=== PATIENT | male | born 1945 | race African-American/Black ===

== ENCOUNTER 2017-01-28 15:19 | Emergency (ER) | payer OTHER, MEDICAID ==
[2017-01-28 15:23] VITALS: BP 187/94; BMI 22.9
--- NOTE | 2017-01-28 16:02 | DR.GENAD ---
HPI - PCP Primary Care Physician: alexander - Complaint/Symptoms Chief Complaint Doctors Comments: Patient admits to right side pain for several weeks. Denies trauma. Severity moderate 7/10, quality sharp, severity moderate , duration one week, modifyiing factors movement. Chief Complaint:: right side flank pain - Source History Provided: Patient - Mode of Arrival Mode of Arrival: Ambulatory - Timing Onset of Chief Complaint: 01/21/17 PMH - PMH Past Medical History: Yes Past Medical History: Arthritis, Hypertension Past Surgical History: No Surgical History: No History - Family History History of Family Medical Conditions: Yes Family Medical History: Diabetes Mellitus, Hypertension - Social History Does patient currently use any type of tobacco product: Yes Have you used tobacco products in the last 12 months: Yes Type of Tobacco Use: Cigarettes Does any household member use tobacco: Yes Alcohol Use: Rarely Do you use any recreational Drugs:: No Lives With: Family Lives Where: Home - infectious screening In the last 2 months have you had wt loss of >10#?: NO Have you had fever, night sweats or hemotysis?: No Have you traveled outside the country in the last 6 months?: No ROS - Review of Systems Constitutional: No Symptoms Reported Eyes: No Symptoms Reported ENTM: No Symptoms Reported Respiratoy: No Symptoms Reported Cardiovascular: No Symptoms Reported Gastrointestinal/Abdominal: No Symptoms Reported Genitourinary: No Symptoms Reported Neurological: No Symptoms Reported Musculoskeletal: No Symptoms Reported Integumentary: No Symptoms Reported Hematologic/Lymphatic: No Symptoms Reported Endocrine: No Symptoms Reported Psychiatric: No Symptoms Reported All Other Systems: Reviewed and Negative PE - Vital Signs Vitals: Temperature 98.9 F Pulse Rate 97 Respiratory Rate 20 Blood Pressure [Right Arm] 163/106 Blood Pressure [Left Arm] 163/94 Blood Pressure 187/94 O2 Sat by Pulse Oximetry 99 - General Limitations: No Limitations General Appearance: Alert, In No Apparent Distress - Head Head Exam: Normal Inspection, Atraumatic - Eyes Eye exam: Normal Appearance, PERRL, EOMI - ENT ENT Exam: Normal Exam External Ear Exam: Normal External Inspection TM/Canal Exam: Bilateral Normal Nose Exam: Normal Nose Exam Mouth Exam: Normal Inspection Throat Exam: Normal Inspection - Neck Neck Exam: Normal Inspection - Chest Chest Inspection: Normal Inspection, Tenderness (admits to tenderness to palpation) - Respiratory Respiratory Exam: Normal Lung Sounds Bilat Respiratory Exam: Bilateral Clear to Auscultation - Cardiovascular Cardiovascular Exam: Regular Rate, Normal Rhythm - Abdominal Exam Abdominal Exam: Normal Inspection Abdominal Tenderness: negative: RUQ, RLQ, LUQ, LLQ, Epigastrium, Suprapubic, Diffuse, Mild, Moderate, Severe, Other - Extremities Extremities Exam: Normal Inspection - Back Back Exam: Normal Inspection - Neurologic Neurological Exam: Alert, Oriented X3, CN II-XII Intact - Psychiatric Psychiatric Exam: Normal Affect - Skin Skin Exam: Warm, Dry, Intact Course - Reevaluation 1st: Improved ROR - XRAY XRAY Interpreted by: Radiologist (Chest negative) - Diagnosis Discharge Problem: Flank pain, chronic - Discharge Plan Condition: Stable - Follow ups/Referrals Follow ups/Referrals: CÉSAR ALEXANDER [Primary Care Provider] - 3 days - Instructions
--- NOTE | 2017-01-28 16:07 | RAD ---
HISTORY: Right flank pain Study: Single view chest Comparison: 06/09/2015 Findings: The lungs are clear without consolidation, effusion or pneumothorax. The cardiac and mediastinal co ntours are within normal limits. The soft tissues are unremarkable. IMPRESSION: 1. Negative portable chest radiograph. Reported By:
[2017-01-28] MEDS ORDERED: TORADOL 60 MG VIAL IM ONE (16:10)
[2017-01-28] MEDS ORDERED: TORADOL 60 MG VIAL ONE (16:20)
== END 2017-01-28 17:02 | disposition home or self-care (01) ==
LOC: ER 15:19
DX: R10.84 Generalized abdominal pain (principal)
CPT/HCPCS: 71010; 96372; 99282; J1885

== ENCOUNTER 2017-11-10 06:54 | Emergency (ER) | payer OTHER, MEDICAID ==
--- NOTE | 2017-11-10 07:19 | DR.GENAD ---
HPI - PCP Primary Care Physician: BENJAMIN Burdick HPI Comment HPI Comment: PERSISTENT AND GETTING WORSE. NO FEVER. - Complaint/Symptoms Chief Complaint Doctors Comments: RIGHT FLANK PAIN AND HEMATURIA SINCE THURSDAY. Chief Complaint:: PT C/O LOWER BACK PAIN. PT STATES HE HURT HIS BACK THURSDAY WHEN HE WAS WORKING. PT ALSO STATES HE IS HAVING SOME HEMATURIA. - Nurses notes reviewed Nurses Notes Review: Yes - Source History Provided: Patient - Mode of Arrival Mode of Arrival: Ambulatory - Timing Onset of Chief Complaint: 11/08/17 Came on: Suddenly - Duration Duration: Constant Duration: Days - Severity Severity: Moderate PMH - PMH Past Medical History: Yes Past Medical History: Arthritis, Hypertension Past Surgical History: No Surgical History: No History - Family History History of Family Medical Conditions: Yes Family Medical History: Diabetes Mellitus, Hypertension - Social History Does patient currently use any type of tobacco product: Yes Have you used tobacco products in the last 12 months: Yes Type of Tobacco Use: Cigarettes Does any household member use tobacco: Yes Alcohol Use: None Do you use any recreational Drugs:: No Lives With: Family Lives Where: Home - infectious screening In the last 2 months have you had wt loss of >10#?: NO Have you had fever, night sweats or hemotysis?: No Have you traveled outside the country in the last 6 months?: No Isolation: Standard ROS - Review of Systems Constitutional: No Symptoms Reported Eyes: No Symptoms Reported ENTM: No Symptoms Reported Respiratoy: No Symptoms Reported Cardiovascular: No Symptoms Reported Gastrointestinal/Abdominal: No Symptoms Reported Genitourinary: Hematuria Neurological: No Symptoms Reported Musculoskeletal: Other (RIGHT FLANK PAIN) Integumentary: No Symptoms Reported Hematologic/Lymphatic: No Symptoms Reported Endocrine: No Symptoms Reported All Other Systems: Reviewed and Negative PE - General Limitations: No Limitations General Appearance: Alert - Head Head Exam: Normal Inspection - Eyes Eye exam: Normal Appearance - ENT ENT Exam: Normal External Ear Exam External Ear Exam: Normal External Inspection TM/Canal Exam: Bilateral Normal Nose Exam: Normal Nose Exam Mouth Exam: Normal Inspection Throat Exam: Normal Inspection - Neck Neck Exam: Trachea Midline - Chest Chest Inspection: Symmetric Chest Wall Rise - Respiratory Respiratory Exam: Normal Lung Sounds Bilat Respiratory Exam: Bilateral Clear to Auscultation - Cardiovascular Cardiovascular Exam: Regular Rate, Normal Rhythm, Normal Heart Sounds - Extremities Extremities Exam: Normal Inspection - Back Back Exam: (R) CVA Tenderness, Paraspinal Tenderness - Neurologic Neurological Exam: Alert, Oriented X3 - Psychiatric Psychiatric Exam: Normal Affect, Normal Mood - Skin Skin Exam: Normal Color - Vital Signs Vitals: Temperature 97.6 F Pulse Rate 88 Respiratory Rate 20 Blood Pressure [Right Arm] 163/106 Blood Pressure [Left Arm] 163/94 Blood Pressure 197/97 O2 Sat by Pulse Oximetry 97 MDM - Differential Diagnosis Differential Diagnosis: RIGHT FLANK PAIN, HEMATURIA Course - Treatment Treatment: SEE ORDERS. - Education/Counseling Education/Counseling: Patient, Education Educated On: Treatment, Diagnosis, Needs for Follow Up ROR - Labs Reviewed Laboratory Results Reviewed?: Yes - XRAY XRAY Interpreted by: Radiologist - Labs Reviewed Laboratory: Specimen Type Clean catch urine 11/10/17 09:08 Urine Color Yellow (YELLOW) 11/10/17 09:08 Urine Appearance Clear (CLEAR) 11/10/17 09:08 Urine pH 6.0 (5.0 - 8.0) 11/10/17 09:08 Ur Specific [place] 1.025 (1.000-1.030) 11/10/17 09:08 Urine Protein 2+ (NEGATIVE) 11/10/17 09:08 Urine Glucose (UA) Negative (NEGATIVE) 11/10/17 09:08 Urine Ketones Negative (NEGATIVE) 11/10/17 09:08 Urine Occult Blood 4+ (NEGATIVE) 11/10/17 09:08 Urine Nitrite Negative (NEGATIVE) 11/10/17 09:08 Urine Bilirubin Negative (NEGATIVE) 11/10/17 09:08 Urine Urobilinogen 2+ (NORMAL) 11/10/17 09:08 Ur Leukocyte Esterase 1+ (NEGATIVE) 11/10/17 09:08 Urine RBC 25-30 /HPF (NEGATIVE) 11/10/17 09:08 Urine WBC 4-8 /HPF (NEGATIVE) 11/10/17 09:08 Ur Squamous Epith Cells Few /HPF (NEGATIVE) 11/10/17 09:08 Urine Bacteria Trace /HPF (NEGATIVE) 11/10/17 09:08 Hyaline Casts Few /LPF (NEGATIVE) 11/10/17 09:08 Ur Culture Indicated? No/not indicated 11/10/17 09:08 - Diagnosis Discharge Problem: Hypertension Qualifiers: Hypertension type: essential hypertension Qualified Code(s): I10 - Essential ( primary) hypertension Cholelithiasis Qualifiers: Cholelithiasis location: gallbladder Cholecystitis presence: without cholecystitis Biliary obstruction: without biliary obstruction Qualified Code(s) : K80.20 - Calculus of gallbladder without cholecystitis without obstruction - Discharge Plan Disposition: 01 HOME, SELF-CARE Condition: Stable Prescriptions: Acetaminophen with Codeine [Tylenol/Codeine #3 300-30 mg] 1 tab PO Q4-6H PRN # 15 tab PRN Reason: Pain Clonidine HCl [CATAPRES 0.1 MG TAB *] 0.1 mg PO BID #60 tab Lisinopril & Hydrochlorothiazi [Zestoretic 20/25 mg] 1 tab PO DAILY #30 tab - Follow ups/Referrals Follow ups/Referrals: CÉSAR ALEXANDER [Primary Care Provider] - 2 days - Instructions Instructions: Smoking Cessation, Tips for Success, Ywuz-[id number], Cholelithiasis , Back Pain, Adult, [id number] Additional Instructions: return to ed if worse. you have a mass in you mucles that need to be evaluated. discuss it with pcp.
[2017-11-10 07:22] VITALS: BP 197/97; BMI 23.6
[2017-11-10] MEDS ORDERED: TORADOL 60 MG VIAL IM ONE (07:26)
[2017-11-10] MEDS ORDERED: NORFLEX INJ IM ONE (07:26)
[2017-11-10] MEDS ORDERED: TORADOL 60 MG VIAL ONE (07:41)
[2017-11-10] MEDS ORDERED: NORFLEX INJ ONE (07:41)
--- NOTE | 2017-11-10 08:59 | CT ---
HISTORY: Right flank pain since Thursday. Study: CT abdomen and pelvis without IV or oral contrast Comparison: No priors Technique: Multiple axial images of the abdomen and pelvis were obtained from the lung bases to the pubic symphy sis without IV or oral the administration of IV contrast. Coronal and sagittal images were also revi ewed. Dose reduction techniques utilized automatic exposure control. Findings: The visualized portions of the lung bases are unremarkable. The liver, spleen, pancreas, and adrenal glands are unremarkable in their CT appearance. There is a 2 mm calcified gallstone present laterall y. Simple cysts are present involving both kidneys. The largest cyst is present in the upper pole reg ion on the left and measures about 2 cm. No solid mass, kidney stone or hydronephrosis is seen.. No significant mesenteric lymphadenopathy or stranding can be observed. No free fluid or free air is se en within the abdomen. No bowel wall thickening or bowel dilatation is present. The appendix is norm al. The colon is unremarkable. Specifically, there is no diverticulosis noted within the sigmoid co armando. There is a 3 cm inguinal hernia present on the left containing peritoneal fat only and no bowel. There is a 5.5 cm mass present involving the vastus lateralis muscle on the right. This displays att enuation densities compatible with fat and may represent either a lipoma or a liposarcoma. The urinar y bladder is grossly unremarkable. The bony structures are grossly intact. IMPRESSION: 2 mm calcified gallstone. Simple cysts present involving both kidneys. No solid mass, stone or hydronephrosis is seen involving either kidney. 5.5 cm fatty mass present involving the vastus lateralis muscle on the right side. This may represent either a lipoma or a liposarcoma. Tissue diagnosis may be needed. Reported By:
[2017-11-10 09:22] LABS: BILIRUBIN,URINE NEGATIVE (NEGATIVE); BLOOD/HEMOGLOBIN,URINE 4+ (NEGATIVE); GLUCOSE, URINE NEGATIVE (NEGATIVE); KETONES,URINE NEGATIVE (NEGATIVE); LEUKOCYTE ESTERASE ,URINE 1+ (NEGATIVE); NITRITES,URINE NEGATIVE (NEGATIVE); PROTEIN,URINE 2+ (NEGATIVE); UROBILINOGEN,URINE 2+ (NORMAL)
[2017-11-10] MEDS ORDERED: CATAPRES TAB 0.1 MG PO ONE (09:30)
[2017-11-10] MEDS ORDERED: ZESTRIL TAB 20 MG PO ONE (09:31)
[2017-11-10] MEDS ORDERED: CATAPRES TAB 0.1 MG ONE (09:32)
[2017-11-10] MEDS ORDERED: ZESTRIL TAB 20 MG ONE (09:34)
[2017-11-10 09:39] LABS: APPEARANCE,URINE CLEAR (CLEAR); BACTERIA,URINE TRACE /HPF (NEGATIVE); COLOR,URINE YELLOW (YELLOW); HYALINE CASTS, URINE FEW /LPF (NEGATIVE); RBC,URINE 25-30 /HPF (NEGATIVE); SQUAMOUS EPITHELIAL CELL,UR FEW /HPF (NEGATIVE)
== END 2017-11-10 09:46 | disposition home or self-care (01) ==
LOC: ER 06:54
DX: K80.20 Calculus of gallbladder without cholecystitis without obstruction (principal); I10 Essential (primary) hypertension; N28.1 Cyst of kidney, acquired
CPT/HCPCS: 74176; 81001; 96372; 99282; 99283; J1885; J2360

== ENCOUNTER 2022-03-12 05:51 | Observation (INO) ==
[2022-03-12 06:01] VITALS: BMI 24.3
--- NOTE | 2022-03-12 06:22 | RAD ---
HISTORYRespiratory difficultySTUDYChest AP portableCOMPARISONNoneFINDINGSThe heart is enlarged. No congestive heart failure is noted. A wedge-shaped area of abnormal parenchymal density in the right upper hemithorax represents at least partial right upper lobe atelectasis. This obscures the right upper hilum. Further evaluation with chest CT WITH CONTRAST is recommended to exclude underlying neoplasm. Left hilum is normal. Remainder of the lung colvin are clear with the exception of minimal subsegmental atelectasis in left lung base. Bony thorax is unremarkable.IMPRESSIONWedge-shaped area of abnormal density in the right upper lung field most likely due to at least partial right upper lobe atelectasis which obscures the superior right hilum. Chest CT WITH CONTRAST is recommended for further evaluationRemainder of the lung colvin are free of infiltrates.Electronically signed by: MARY SANDOVAL (March 12, 2022 06:22:35)
[2022-03-12 06:25] LABS: ABG BASE EXCESS 1.1 mmol/L (-2.0-2.0); ABG HCO3 27.9 mmol/L (22-26)
[2022-03-12 06:26] LABS: ABG ALLEN TEST POS
[2022-03-12 06:31] LABS: ALANINE AMINOTRANSFERASE 32 Units/L (12-78); ALBUMIN 2.9 g/dL (3.4-5.0); ALKALINE PHOSPHATASE 100 Units/L (46-116); ASPARTATE AMINO TRANSFERASE 45 Units/L (15-37); BLOOD UREA NITROGEN 9 mg/dL (7-18); CALCIUM 7.7 mg/dL (8.5-10.1); CHLORIDE 98 mmol/L (98-107); COR CA(FOR HYPOALB) 8.6 mg/dL (8.5-10.1); CREATININE 1.06 mg/dL (0.70-1.30); SODIUM 132 mmol/L (136-145); TOTAL PROTEIN 8.1 g/dL (6.4-8.2); eGFR NON BLACK RACES > 60 (>60)
--- NOTE | 2022-03-12 06:33 | DR.SOBA ---
HPI Time Seen Time Seen by Provider: 03/12/22 06:29 Primary Care Physician Primary Care Physician: BENJAMIN HPI Comment HPI Comment: Brought in by ems with sob x several months as well as swelling in lower extremities; stopped taking his bp medications months ago; drinks "one beer every day"; no fever, chills, abd pain, n/v/d, cp or palpitations Complaints Chief Complaint:: PT IN ED VIA STRETCHER PER [facility] WITH C/O DIFFICULTY BREATHING OFF AND ON FOR A COUPLE OF WEEKS AND HIGH BLOOD PRESSURE. PER EMS PT STATED TO THEM THAT HE IS SUPPOSE TO BE ON BP MEDS BUT HASN'T BEEN TAKING IT. ALSO C/O BILATERAL LOWER EXTREMITY SWELLING. PT NOTED TO HAVE 2+ PITTING EDEMA FROM KNEES TO ANKLES BILATERALLY. COVID-19 Coronavirus risk:travel/contact w/high risk person: No Has patient experienced Coronavirus symptoms: Yes Coronavirus symptoms experienced: Shortness of Breath Source History Provided: Patient and EMS Mode of Arrival Mode of Arrival: Stretcher Timing Onset of Chief Complaint: 02/26/22 PMH PMH Past Medical History: Yes Past Medical History: Hypertension Past Surgical History: Yes Surgical History: No History Past Surgical History Comment: BILATERAL CATARACT Family History History of Family Medical Conditions: Yes Family Medical History: Diabetes Mellitus and Hypertension Social History Does patient currently use any type of tobacco product: No Have you used tobacco products in the last 12 months: No Type of Tobacco Use: None Does any household member use tobacco: No Alcohol Use: DAILY Do you use any recreational Drugs:: No Lives With: Significant Other Lives Where: Home Travel Risk Coronavirus risk:travel/contact w/high risk person: No Has patient experienced Coronavirus symptoms: Yes Coronavirus symptoms experienced: Shortness of Breath Infectious screening In the last 2 months have you had wt loss of >10#?: NO Have you had fever, night sweats or hemotysis?: No Have you traveled outside the country in the last 6 months?: No Isolation: Droplet ROS Review of Systems Constitutional: No Symptoms Reported Eyes: No Symptoms Reported ENTM: No Symptoms Reported Cardiovascular: No Symptoms Reported Gastrointestinal/Abdominal: No Symptoms Reported Genitourinary: No Symptoms Reported Neurological: No Symptoms Reported Musculoskeletal: No Symptoms Reported Integumentary: No Symptoms Reported Hematologic/Lymphatic: No Symptoms Reported Endocrine: No Symptoms Reported Psychiatric: No Symptoms Reported PE Vital Signs Vitals: Temperature 98.3 F Pulse Rate 76 Respiratory Rate 20 Blood Pressure [Right Arm] 170/84 Blood Pressure [Left Arm] 164/109 Blood Pressure 156/104 O2 Sat by Pulse Oximetry 100 General Limitations: No Limitations General Appearance: Alert and In No Apparent Distress Head Head Exam: Normal Inspection Eyes Eye exam: Normal Appearance ENT ENT Exam: Normal Exam Neck Neck Exam: Normal Inspection Chest Chest Inspection: Normal Inspection Respiratory Respiratory Exam: Bilateral: Wheezing, Left: Wheezing and Lower: Wheezing Cardiovascular Cardiovascular Exam: Regular Rate and Normal Rhythm Abdominal Exam Abdominal Exam: Normal Inspection, Normal Bowel Sounds and Soft Extremities Extremities Exam: Edema (2+ woody edema to knee) Back Back Exam: Normal Inspection Neurologic Neurological Exam: Alert and Oriented X3 Psychiatric Psychiatric Exam: Normal Affect and Normal Mood Skin Skin Exam: Warm, Dry, Intact and Normal Color ROR Labs Reviewed Result Diagrams: 03/13/22 05:00 03/13/22 05:00 Laboratory: WBC 7.2 X10^3/uL (3.6-10.0) 03/12/22 07:17 RBC 4.42 X10^6/uL (4.7-6.0) L 03/12/22 07:17 Hgb 7.1 g/dL (13.5-18.0) L 03/12/22 07:17 Hct 26.2 % (42.0-54.0) L 03/12/22 07:17 MCV 59.3 fL (80.0-100.0) L 03/12/22 07:17 MCH 16.0 pg (27.0-34.0) L 03/12/22 07:17 MCHC 27.0 g/dL (33.0-35.0) L 03/12/22 07:17 RDW 25.1 % (11.6-16.5) H 03/12/22 07:17 Plt Count 360 X10^3/uL (150.0-450.0) 03/12/22 07:17 Plt Count Comment Adequate (ADEQUATE) 03/12/22 07:17 MPV 8.7 fL (7.4-11.0) 03/12/22 07:17 Neut % (Auto) 54.0 % (42.0-75.0) 03/12/22 07:17 Lymph % (Auto) 19.5 % (21.0-51.0) L 03/12/22 07:17 [place] % (Auto) 23.3 % (0.0-13.0) H 03/12/22 07:17 Eos % (Auto) 1.8 % (0.9-2.9) 03/12/22 07:17 Baso % (Auto) 1.4 % (0.2-1.0) H 03/12/22 07:17 Neut # (Auto) 3.9 x10^3/uL (2.2-4.8) 03/12/22 07:17 Lymph # (Auto) 1.4 X10^3/uL (1.3-2.9) 03/12/22 07:17 [place] # (Auto) 1.7 x10^3/uL (0.3-0.8) H 03/12/22 07:17 Eos # (Auto) 0.1 x10^3/uL (0.0-0.2) 03/12/22 07:17 Baso # (Auto) 0.1 X10^3/uL (0.0-0.1) 03/12/22 07:17 Absolute Nucleated RBC 2.5 /100WBC 03/12/22 07:17 Total Counted 100 03/12/22 07:17 Neutrophils % (Manual) 44 % (39-76) 03/12/22 07:17 Lymphocytes % (Manual) 30 % (13-43) 03/12/22 07:17 Monocytes % (Manual) 16 % (4-9) H 03/12/22 07:17 Eosinophils % (Manual) 2 % (0-6) 03/12/22 07:17 Metamyelocytes % 8 03/12/22 07:17 Nucleated RBCs 4 03/12/22 07:17 Plt Morphology Comment Normal (NORMAL) 03/12/22 07:17 RBC Morphology Abnormal (NORMAL) 03/12/22 07:17 Hypochromasia 3+ A 03/12/22 07:17 Poikilocytosis Slight A 03/12/22 07:17 Anisocytosis 3+ A 03/12/22 07:17 Microcytosis 3+ A 03/12/22 07:17 Target Cells 1+ A 03/12/22 07:17 Tear Drop Cells Slight 03/12/22 07:17 Ovalocytes Slight A 03/12/22 07:17 Wister Cells Slight A 03/12/22 07:17 Crenated Cell 1+ A 03/12/22 07:17 Schistocytes Slight A 03/12/22 07:17 Sample Site Lbra 03/12/22 07:10 ABG pH 7.290 (7.35-7.45) L 03/12/22 07:10 ABG pCO2 59.0 mmHg (35.0-45.0) H* 03/12/22 07:10 ABG pO2 98.0 mmHg (80.0-100.0) 03/12/22 07:10 ABG HCO3 28.4 mmol/L (22-26) H 03/12/22 07:10 ABG O2 Saturation 97.0 % (90-100) 03/12/22 07:10 ABG Base Excess 0.7 mmol/L (-2.0-2.0) 03/12/22 07:10 Marquis Test N/a 03/12/22 07:10 A-a Gradient 28.0 mmHg 03/12/22 07:10 FiO2 28.0 03/12/22 07:10 Blood Gas Comments Pt olga well elj 03/12/22 07:10 Sodium 132 mmol/L (136-145) L 03/12/22 06:12 Corrected Sodium TNP 03/12/22 06:12 Potassium 4.2 mmol/L (3.5-5.1) 03/12/22 06:12 Chloride 98 mmol/L (98-107) 03/12/22 06:12 Carbon Dioxide 30.0 mmol/L (21-32) 03/12/22 06:12 BUN 9 mg/dL (7-18) 03/12/22 06:12 Creatinine 1.06 mg/dL (0.70-1.30) 03/12/22 06:12 Est GFR (MDRD) Af Amer > 60 (>60) 03/12/22 06:12 Est GFR (MDRD) Non-Af > 60 (>60) 03/12/22 06:12 Glucose 106 mg/dL (65-99) H 03/12/22 06:12 Calcium 7.7 mg/dL (8.5-10.1) L 03/12/22 06:12 Corrected Calcium 8.6 mg/dL (8.5-10.1) 03/12/22 06:12 Total Bilirubin 0.80 mg/dL (0.2-1.0) 03/12/22 06:12 AST 45 Units/L (15-37) H 03/12/22 06:12 ALT 32 Units/L (12-78) 03/12/22 06:12 Alkaline Phosphatase 100 Units/L (46-116) 03/12/22 06:12 Creatine Kinase 80 Units/L (39-308) 03/12/22 06:12 CK-MB (CK-2) 1.6 ng/mL (0-4.0) 03/12/22 06:12 CK/CKMB % Calc 2.0 % (<4) 03/12/22 06:12 Troponin I High Sens 29.5 ng/L (4.0-60.0) 03/12/22 06:12 B-Natriuretic Peptide 858 pg/mL (0-79) H* 03/12/22 06:12 Total Protein 8.1 g/dL (6.4-8.2) 03/12/22 06:12 Albumin 2.9 g/dL (3.4-5.0) L 03/12/22 06:12 Globulin 5.2 g/dL (2.5-4.5) H 03/12/22 06:12 Albumin/Globulin Ratio 0.6 Ratio (1.1-2.1) L 03/12/22 06:12 Specimen Type Clean catch urine 03/12/22 07:32 Urine Color Pale yellow (YELLOW) 03/12/22 07:32 Urine Appearance Clear (CLEAR) 03/12/22 07:32 Urine pH 6.0 (5.0 - 8.0) 03/12/22 07:32 Ur Specific [place] 1.010 (1.000-1.030) 03/12/22 07:32 Urine Protein Negative (NEGATIVE) 03/12/22 07:32 Urine Glucose (UA) Negative (NEGATIVE) 03/12/22 07:32 Urine Ketones Negative (NEGATIVE) 03/12/22 07:32 Urine Blood Negative (NEGATIVE) 03/12/22 07:32 Urine Nitrite Negative (NEGATIVE) 03/12/22 07:32 Urine Bilirubin Negative (NEGATIVE) 03/12/22 07:32 Urine Urobilinogen Normal (NORMAL) 03/12/22 07:32 Ur Leukocyte Esterase 1+ (NEGATIVE) 03/12/22 07:32 Urine RBC None seen /HPF (0-3) 03/12/22 07:32 Urine WBC 0-2 /HPF (0-5) 03/12/22 07:32 Ur Squamous Epith Cells Few /HPF (NEGATIVE) 03/12/22 07:32 Urine Bacteria Negative /HPF (NEGATIVE) 03/12/22 07:32 Ur Culture Indicated? No/not indicated 03/12/22 07:32 SARS-CoV-2 (PCR) Negative (NEGATIVE) 03/12/22 08:06 Influenza Type A (PCR) Negative (NEGATIVE) 03/12/22 08:06 Influenza Type B (PCR) Negative (NEGATIVE) 03/12/22 08:06 RSV (PCR) Negative (NEGATIVE) 03/12/22 08:06 XRAY XRAY Interpreted by: Radiologist X-ray Results: pcxr: Wedge-shaped area of abnormal density in the right upper lung field most likely due to at least partial right upper lobe atelectasis which obscures the superior right hilum. Chest CT WITH CONTRAST is recommended for further evaluation. Remainder of the lung colvin are free of infiltrates. Opioid Opioid Risk Tool Age (Herson box if 16-45): No History of Preadolescent Sexual Abuse: No Total: 0 Total Score Risk Category: Low Risk Copyright: Vides LR predicting aberrant behaviors Diagnosis Discharge Problem: Acute hypercapnic respiratory failure, Hypoxia, Uncontrolled hypertension Heart failure, chronic, with acute decompensation Qualifiers: Heart failure type: unspecified Qualified Code(s): I50.9 - Heart failure, unspecified Instructions Instructions: Fall Prevention in the Home, Adult, [id number] Lung Mass Hypoxia Heart Failure, Self Care, [id number] Hypertension, Adult, [id number] Acute Respiratory Failure, Adult Living With Heart Failure Forms: Precautions for COVID19 [facility] Patient Portal Social Distancing
[2022-03-12] MEDS ORDERED: LASIX IVP ONE ×2 (06:44→06:49)
[2022-03-12 07:00] LABS: CREATINE KINASE MB 1.6 ng/mL (0-4.0)
[2022-03-12] MEDS ORDERED: APRESOLINE INJ 20 MG VIAL IVP ONE (07:12)
[2022-03-12 07:13] LABS: ABG BASE EXCESS 0.7 mmol/L (-2.0-2.0); ABG HCO3 28.4 mmol/L (22-26)
[2022-03-12 07:37] LABS: BASOPHILS # (AUTO) 0.1 X10^3/uL (0.0-0.1); BASOPHILS % (AUTO) 1.4 % (0.2-1.0); EOSINOPHILS # (AUTO) 0.1 x10^3/uL (0.0-0.2); EOSINOPHILS % (AUTO) 1.8 % (0.9-2.9); HEMATOCRIT 26.2 % (42.0-54.0); HEMOGLOBIN 7.1 g/dL (13.5-18.0); LYMPHOCYTES # (AUTO) 1.4 X10^3/uL (1.3-2.9); LYMPHOCYTES % (AUTO) 19.5 % (21.0-51.0); MEAN CORPUSCULAR VOLUME 59.3 fL (80.0-100.0); MEAN PLATELET VOLUME 8.7 fL (7.4-11.0); MONOCYTES # (AUTO) 1.7 x10^3/uL (0.3-0.8); MONOCYTES % (AUTO) 23.3 % (0.0-13.0); NEUTROPHILS # (AUTO) 3.9 x10^3/uL (2.2-4.8); RED BLOOD COUNT 4.42 X10^6/uL (4.7-6.0); RED CELL DISTRIBUTION WIDTH 25.1 % (11.6-16.5); WHITE BLOOD COUNT 7.2 X10^3/uL (3.6-10.0)
[2022-03-12 07:40] LABS: BILIRUBIN,URINE NEGATIVE (NEGATIVE); BLOOD/HEMOGLOBIN,URINE NEGATIVE (NEGATIVE); GLUCOSE, URINE NEGATIVE (NEGATIVE); KETONES,URINE NEGATIVE (NEGATIVE); LEUKOCYTE ESTERASE ,URINE 1+ (NEGATIVE); NITRITES,URINE NEGATIVE (NEGATIVE); PROTEIN,URINE NEGATIVE (NEGATIVE); UROBILINOGEN,URINE NORMAL (NORMAL)
[2022-03-12 07:52] LABS: HYPOCHROMASIA 3+; METAMYELOCYTES % 8; PLATELET MORPHOLOGY COMMENT NORMAL (NORMAL)
[2022-03-12 07:52] LABS: APPEARANCE,URINE CLEAR (CLEAR); COLOR,URINE PALE YELLOW (YELLOW)
[2022-03-12 07:53] LABS: ANISOCYTOSIS 3+; BURR CELLS SLIGHT; CRENATED RBC 1+; MICROCYTOSIS 3+; OVALOCYTES SLIGHT; POIKILOCYTOSIS SLIGHT; SCHISTOCYTES SLIGHT; TARGET CELLS 1+; TEAR DROP CELLS SLIGHT
[2022-03-12 07:53] LABS: BACTERIA,URINE NEGATIVE /HPF (NEGATIVE); RBC,URINE NONE SEEN /HPF (0-3); SQUAMOUS EPITHELIAL CELL,UR FEW /HPF (NEGATIVE)
[2022-03-12] MEDS ORDERED: TYLENOL 325 MG TAB PO PRN (08:52)
[2022-03-12] MEDS ORDERED: PREDNISONE TAB 10 MG PO SCH ×2 (10:00→17:00)
[2022-03-12] MEDS ORDERED: COREG TAB 12.5 MG PO SCH (10:00)
[2022-03-12] MEDS ORDERED: ZESTRIL TAB 20 MG ONE ×2 (10:02→20:36)
[2022-03-12] MEDS: ZESTRIL TAB 20 MG PO SCH ×2 (10:04→23:00)
[2022-03-12] MEDS: K-DUR TAB 20 MEQ PO SCH ×2 (10:04→23:00)
[2022-03-12] MEDS: LASIX IVP SCH ×2 (10:04→16:51)
[2022-03-12] MEDS: NS 1,000 ML IV 1,000 ML IV SCH ×2 (10:04→22:55)
[2022-03-12] MEDS ORDERED: NS 250 ML IV 250 ML IV PRN (13:03)
[2022-03-12] MEDS ORDERED: NS 250 ML IV 250 ML IV ONE (13:19)
[2022-03-12 13:54] LABS: ABG BASE EXCESS 2.9 mmol/L (-2.0-2.0)
[2022-03-12 13:56] LABS: ABG HCO3 30.4 mmol/L (22-26)
[2022-03-12 13:57] LABS: ABG ALLEN TEST POSITIVE
[2022-03-12] MEDS ORDERED: PREDNISONE TAB 10 MG PO NR ×2 (17:00→23:00)
[2022-03-12] MEDS ORDERED: BENADRYL CAP 50 MG PO SCH (22:45)
[2022-03-12 23:19] LABS: HEMATOCRIT 31.9 % (42.0-54.0)
[2022-03-12 23:24] LABS: HEMOGLOBIN 9.1 g/dL (13.5-18.0)
[2022-03-13] MEDS ORDERED: PREDNISONE TAB 10 MG PO NR (05:00)
[2022-03-13] MEDS ORDERED: BENADRYL CAP 50 MG PO SCH (05:00)
[2022-03-13 05:27] LABS: HEMOGLOBIN 9.3 g/dL (13.5-18.0); LYMPHOCYTES # (AUTO) 0.4 X10^3/uL (1.3-2.9); MEAN CORPUSCULAR HGB CONC 28.4 g/dL (33.0-35.0); MONOCYTES # (AUTO) 0.1 x10^3/uL (0.3-0.8); WHITE BLOOD COUNT 5.3 X10^3/uL (3.6-10.0)
[2022-03-13 05:35] LABS: BASOPHILS # (AUTO) 0.1 X10^3/uL (0.0-0.1); BASOPHILS % (AUTO) 1.1 % (0.2-1.0); EOSINOPHILS % (AUTO) 0.1 % (0.9-2.9); HEMATOCRIT 32.6 % (42.0-54.0); LYMPHOCYTES % (AUTO) 7.9 % (21.0-51.0); MEAN CORPUSCULAR HEMOGLOBIN 18.1 pg (27.0-34.0); MEAN CORPUSCULAR VOLUME 63.9 fL (80.0-100.0); MONOCYTES % (AUTO) 1.2 % (0.0-13.0); NEUTROPHILS # (AUTO) 4.8 x10^3/uL (2.2-4.8); NEUTROPHILS % (AUTO) 89.7 % (42.0-75.0)
[2022-03-13 05:50] LABS: ALANINE AMINOTRANSFERASE 35 Units/L (12-78); ALKALINE PHOSPHATASE 96 Units/L (46-116); ASPARTATE AMINO TRANSFERASE 40 Units/L (15-37); BLOOD UREA NITROGEN 13 mg/dL (7-18); CALCIUM 7.7 mg/dL (8.5-10.1); CHLORIDE 98 mmol/L (98-107); COR CA(FOR HYPOALB) 8.5 mg/dL (8.5-10.1); COR NA(FOR HYPERGLY) 135 mmol/L (136-145); CREATININE 1.15 mg/dL (0.70-1.30); SODIUM 134 mmol/L (136-145); TOTAL PROTEIN 8.2 g/dL (6.4-8.2); eGFR NON BLACK RACES > 60 (>60)
[2022-03-13 07:18] LABS: HYPOCHROMASIA 3+
[2022-03-13 07:20] LABS: ANISOCYTOSIS 3+; BURR CELLS SLIGHT; MICROCYTOSIS 2+; OVALOCYTES SLIGHT; POIKILOCYTOSIS SLIGHT; STOMATOCYTES SLIGHT
[2022-03-13 07:21] LABS: SCHISTOCYTES SLIGHT
[2022-03-13 07:30] LABS: PLATELET MORPHOLOGY COMMENT NORMAL (NORMAL)
[2022-03-13 08:18] VITALS: BP 162/85
[2022-03-13] MEDS ORDERED: ZESTRIL TAB 20 MG ONE (08:24)
[2022-03-13] MEDS: K-DUR TAB 20 MEQ PO SCH (08:51)
[2022-03-13] MEDS: LASIX IVP SCH (08:51)
[2022-03-13] MEDS: ZESTRIL TAB 20 MG PO SCH (08:51)
[2022-03-13] MEDS ORDERED: COREG TAB 3.125 MG PO SCH (10:00)
--- NOTE | 2022-03-13 10:32 | CT ---
HISTORYShortness of breath, abnormal chest x-ray, right upper lobe atelectasisSTUDYCT chest with contrastTechnique: Axial post-contrast images with coronal and sagittal reformats. Dose reduction procedures were used with mA/kv adjusted for body size.COMPARISONNoneFINDINGSExamination of the mediastinum demonstrated no evidence for mediastinal masses, enlarged mediastinal or enlarged left hilar adenopathy or significant aortic abnormality. The heart is enlarged. There is complete occlusion of the right mainstem bronchus approximately 2.3 cm distal to the linda and just distal to the origin of the bronchus intermedius. There appears to be a soft tissue mass occluding the bronchus at that point. That is best visualized on CT series 4 image 25. Distal to the bronchial obstruction there is complete atelectasis of the right upper lobe. There is a question of a right hilar mass contributing to some narrowing of the arterial branch to the right upper lobe. Endobronchial neoplasm is suspected and bronchoscopy would be of further diagnostic value. No pleural effusions are identified. No chest wall or axillary abnormality is identified. Those portions of the upper abdominal organs visualized were within normal limits with the exception of cholelithiasis without evidence for cholecystitis. Evaluation of the remainder of the lung colvin demonstrated right middle and right lower lobes to be hyperinflated but clear. Lung is free of acute infiltrates. There is a 3.3 mm nodule in the superior segment of the left lower lobe. This could be a granuloma or a metastasis.IMPRESSIONComplete occlusion of the right mainstem bronchus just distal to the origin of the bronchus intermedius. There appears to be an endobronchial mass present. Endobronchial neoplasm is suspected and bronchoscopy is recommended.Endobronchial occlusion results in right upper lobe atelectasis within which there may be a right hilar neoplasm..Cholelithiasis without evidence for cholecystitisElectronically signed by: MARY SANDOVAL (March 13, 2022 10:31:11)
[2022-03-13] MEDS: NS 1,000 ML IV 1,000 ML IV SCH (11:13)
[2022-03-14] MEDS ORDERED: ZESTRIL TAB 20 MG PO SCH (09:00)
[2022-03-14] MEDS ORDERED: LASIX PO SCH (09:00)
== END 2022-03-13 11:50 | disposition home or self-care (01) ==
LOC: MED/SURG 05:51 → ER 05:51 → MED/SURG 09:37
PROVIDERS: ADMIT Obstetrics & Gynecology Obstetrics; ATTEND Obstetrics & Gynecology Obstetrics
DX: Z20.822 Contact with and (suspected) exposure to COVID-19; J44.9 Chronic obstructive pulmonary disease, unspecified; J98.11 Atelectasis; I11.0 Hypertensive heart disease with heart failure; R06.02 Shortness of breath; R94.31 Abnormal electrocardiogram [ECG] [EKG]; I50.9 Heart failure, unspecified; D64.89 Other specified anemias

== ENCOUNTER 2022-04-10 04:07 | Observation (INO) ==
[2022-04-10 04:24] VITALS: BMI 21.9
[2022-04-10] MEDS ORDERED: DUONEB 0.5 MG/3 MG (3 mL) NEB ONE ×2 (04:24→05:49)
[2022-04-10] MEDS ORDERED: SOLU-Medrol 40 MG VIAL IVP ONE (04:24)
[2022-04-10] MEDS ORDERED: SOLU-Medrol 40 MG VIAL ONE (04:30)
[2022-04-10] MEDS ORDERED: CATAPRES TAB 0.2 MG PO ONE (04:37)
[2022-04-10] MEDS ORDERED: CATAPRES TAB 0.2 MG ONE (04:38)
--- NOTE | 2022-04-10 04:42 | DR.SOBA ---
HPI Time Seen Time Seen by Provider: 04/10/22 04:23 Primary Care Physician Primary Care Physician: BENJAMIN HPI Comment HPI Comment: A 77 y/o male presenting to the ED via EMS with c/o dyspnea. He states that he has been dyspneic for months. HE denies C/P. He states that he is out of medications. He was admitted for Obs. on 03/12/22 and released on . Complaints Chief Complaint:: PT IN ED VIA STRETCHER PER [facility] WITH C/O SOB AND ELEVATED BP. PT STATES HE IS OUT OF HIS MEDICATION. PT DISCHARGED FROM HOSPITAL ON 03/13/22. Self Treatment fo Chief Complaint: EMS GAVE 1 NITRO 0.4 SL COVID-19 Coronavirus risk:travel/contact w/high risk person: No Has patient experienced Coronavirus symptoms: Yes Coronavirus symptoms experienced: Shortness of Breath Reviewed Nurses Notes Reviewed: Yes Source History Provided: Patient and EMS Mode of Arrival Mode of Arrival: Stretcher Timing Onset of Chief Complaint: 04/10/22 Duration Duration: Months Context Onset:: With Light Exertion PE Risk Factors:: None History of:: CHF Modifying Factors Worsens:: Nothing Improves:: Nothing Associated Signs and Symptoms Associated Signs and Symptoms: None PMH PMH Past Medical History: Yes Past Medical History: Asthma, CHF, COPD and Hypertension Past Surgical History: Yes Surgical History: Other Past Surgical History Comment: BILATERAL CATARACT Family History History of Family Medical Conditions: Yes Family Medical History: Diabetes Mellitus, Cancer, Coronary Artery Disease and Hypertension Social History Does any household member use tobacco: No Alcohol Use: Occasionally Do you use any recreational Drugs:: No Lives With: Friend Lives Where: Home Travel Risk Coronavirus risk:travel/contact w/high risk person: No Has patient experienced Coronavirus symptoms: Yes Coronavirus symptoms experienced: Shortness of Breath Infectious screening In the last 2 months have you had wt loss of >10#?: NO Have you had fever, night sweats or hemotysis?: No Have you traveled outside the country in the last 6 months?: No Isolation: Droplet ROS Review of Systems Constitutional: No Symptoms Reported Eyes: No Symptoms Reported ENTM: No Symptoms Reported Respiratoy: Short of Breath Cardiovascular: No Symptoms Reported Gastrointestinal/Abdominal: No Symptoms Reported Genitourinary: No Symptoms Reported Neurological: No Symptoms Reported Musculoskeletal: No Symptoms Reported Integumentary: No Symptoms Reported Hematologic/Lymphatic: No Symptoms Reported Endocrine: No Symptoms Reported Psychiatric: No Symptoms Reported PE Vital Signs Vitals: Temperature 98.0 F Pulse Rate 109 Respiratory Rate 28 Blood Pressure [Right Arm] 162/85 Blood Pressure 191/112 O2 Sat by Pulse Oximetry 92 General Limitations: No Limitations General Appearance: Alert and In No Apparent Distress Head Head Exam: Normal Inspection, Atraumatic and Normocephalic Eyes Eye exam: Normal Appearance and EOMI ENT ENT Exam: Normal Exam, Normal Oropharynx, Normal External Ear Exam and Mucous Membranes Moist Neck Neck Exam: Normal Inspection, Full ROM and Trachea Midline Chest Chest Inspection: Normal Inspection and Symmetric Chest Wall Rise Respiratory Respiratory Exam: Bilateral: Wheezing Cardiovascular Cardiovascular Exam: Regular Rate, Normal Rhythm, Normal Heart Sounds, +S1 and +S2 Abdominal Exam Abdominal Exam: Normal Inspection, Normal Bowel Sounds and Soft Extremities Extremities Exam: Normal Inspection and Full ROM Back Back Exam: Normal Inspection and Full ROM Neurologic Neurological Exam: Alert and Oriented X3 Psychiatric Psychiatric Exam: Normal Affect and Normal Mood Skin Skin Exam: Intact COURSE Treatment Treatment: Pt's. presentation and findings were discussed with on-call physician (Dr. Fisher). Apparently, he was dx. with Rt. Lung mass at last admission (March 2022) and management was to be handled at office f/u. It's not clear if went for that appt. or not but he knows about this dx. In the ED here, he received Clonidine and IV Hydralazine for the BP elevation. Hypertension protocol was ordered as part of his admission orders. Reevaluation 1st: Improved Education/Counseling Education/Counseling: Patient, Education and Counseling Educated On: Treatment, Diagnosis, Prognosis and Needs for Follow Up ROR Labs Reviewed Result Diagrams: 04/10/22 04:47 Laboratory: WBC 10.6 X10^3/uL (3.6-10.0) H 04/10/22 04:47 RBC 5.35 X10^6/uL (4.7-6.0) 04/10/22 04:47 Hgb 10.1 g/dL (13.5-18.0) L 04/10/22 04:47 Hct 34.4 % (42.0-54.0) L 04/10/22 04:47 MCV 64.4 fL (80.0-100.0) L 04/10/22 04:47 MCH 18.9 pg (27.0-34.0) L 04/10/22 04:47 MCHC 29.4 g/dL (33.0-35.0) L 04/10/22 04:47 RDW 29.6 % (11.6-16.5) H 04/10/22 04:47 Plt Count 529 X10^3/uL (150.0-450.0) H 04/10/22 04:47 MPV 8.5 fL (7.4-11.0) 04/10/22 04:47 Neut % (Auto) 43.4 % (42.0-75.0) 04/10/22 04:47 Lymph % (Auto) 38.6 % (21.0-51.0) 04/10/22 04:47 [place] % (Auto) 15.4 % (0.0-13.0) H 04/10/22 04:47 Eos % (Auto) 1.5 % (0.9-2.9) 04/10/22 04:47 Baso % (Auto) 1.1 % (0.2-1.0) H 04/10/22 04:47 Neut # (Auto) 4.6 x10^3/uL (2.2-4.8) 04/10/22 04:47 Lymph # (Auto) 4.1 X10^3/uL (1.3-2.9) H 04/10/22 04:47 [place] # (Auto) 1.6 x10^3/uL (0.3-0.8) H 04/10/22 04:47 Eos # (Auto) 0.2 x10^3/uL (0.0-0.2) 04/10/22 04:47 Baso # (Auto) 0.1 X10^3/uL (0.0-0.1) 04/10/22 04:47 Absolute Nucleated RBC 0.3 /100WBC 04/10/22 04:47 SARS-CoV-2 (PCR) Negative (NEGATIVE) 04/10/22 04:21 Influenza Type A (PCR) Negative (NEGATIVE) 04/10/22 04:21 Influenza Type B (PCR) Negative (NEGATIVE) 04/10/22 04:21 RSV (PCR) Negative (NEGATIVE) 04/10/22 04:21 XRAY XRAY Interpreted by: Self X-ray Results: CXR: RUL atelectasis noted. There is no cardiomegaly. Radiology report is pending. Opioid Opioid Risk Tool Age (Herson box if 16-45): No History of Preadolescent Sexual Abuse: No Total: 0 Total Score Risk Category: Low Risk Copyright: [facility] predicting aberrant behaviors Diagnosis Discharge Problem: Acute dyspnea, Mass of right lung Hypertensive heart disease with CHF Qualifiers: Heart failure type: unspecified Qualified Code(s): I11.0 - Hypertensive heart disease with heart failure ADDITIONAL NOTES Additional Notes Additional Notes: Name: GRACE SPEARS PAcct#: [id number]: [id number] : 1945Sex: MLocation: ER Order Number(s): [id number](s):CHEST, 1 VIEW Ordering Physician: EZE ARRIAGA Primary Care: CÉSAR ALEXANDER Service Date: 04/10/22 Service Time: 424 PROCEDURE: Chest X-ray 1 View . HISTORY: Hypertension and dyspnea. TECHNIQUE: AP portable done at 4:28 a.m.. COMPARISON: 03/13/2022 CT chest and 03/12/2022 chest x-ray. TECHNICAL QUALITY: Satisfactory . FINDINGS: Normal size heart. Mild tortuosity descending aorta that is unchanged. Normal central vascularity. Atelectasis extending into the right upper lobe unchanged from previous studies. No other consolidation or pleural fluid. IMPRESSION: 1. Unchanged right upper lobe atelectasis. 2. No other significant abnormality identified. Electronically signed by: Willie Vieyra (Apr 10, 2022 04:44:45) Report Electronically signed: 04/10/22 0531 CC: Eze Arriaga
--- NOTE | 2022-04-10 04:46 | RAD ---
PROCEDURE: Chest X-ray 1 View .HISTORY: Hypertension and dyspnea.TECHNIQUE: AP portable done at 4:28 a.m..COMPARISON: 03/13/2022 CT chest and 03/12/2022 chest x-ray.TECHNICAL QUALITY: Satisfactory .FINDINGS:Normal size heart.Mild tortuosity descending aorta that is unchanged.Normal central vascularity.Atelectasis extending into the right upper lobe unchanged from previous studies. No other consolidation or pleural fluid.IMPRESSION:1. Unchanged right upper lobe atelectasis.2. No other significant abnormality identified.Electronically signed by: Willie Vieyra (Apr 10, 2022 04:44:45)
[2022-04-10 04:57] LABS: BASOPHILS # (AUTO) 0.1 X10^3/uL (0.0-0.1); BASOPHILS % (AUTO) 1.1 % (0.2-1.0); EOSINOPHILS # (AUTO) 0.2 x10^3/uL (0.0-0.2); EOSINOPHILS % (AUTO) 1.5 % (0.9-2.9); HEMATOCRIT 34.4 % (42.0-54.0); HEMOGLOBIN 10.1 g/dL (13.5-18.0); LYMPHOCYTES # (AUTO) 4.1 X10^3/uL (1.3-2.9); LYMPHOCYTES % (AUTO) 38.6 % (21.0-51.0); MEAN CORPUSCULAR HEMOGLOBIN 18.9 pg (27.0-34.0); MEAN CORPUSCULAR HGB CONC 29.4 g/dL (33.0-35.0); MEAN CORPUSCULAR VOLUME 64.4 fL (80.0-100.0); MEAN PLATELET VOLUME 8.5 fL (7.4-11.0); MONOCYTES # (AUTO) 1.6 x10^3/uL (0.3-0.8); MONOCYTES % (AUTO) 15.4 % (0.0-13.0); NEUTROPHILS # (AUTO) 4.6 x10^3/uL (2.2-4.8); NEUTROPHILS % (AUTO) 43.4 % (42.0-75.0); RED BLOOD COUNT 5.35 X10^6/uL (4.7-6.0); RED CELL DISTRIBUTION WIDTH 29.6 % (11.6-16.5); WHITE BLOOD COUNT 10.6 X10^3/uL (3.6-10.0)
[2022-04-10] MEDS ORDERED: MORPHINE SULFATE INJ 2 MG INJ IVP ONE (04:59)
[2022-04-10] MEDS ORDERED: MORPHINE SULFATE INJ 2 MG INJ ONE (05:01)
[2022-04-10] MEDS ORDERED: APRESOLINE INJ 20 MG VIAL IVP ONE ×2 (05:28→05:32)
[2022-04-10] MEDS ORDERED: APRESOLINE INJ 20 MG VIAL ONE (05:29)
[2022-04-10 05:31] LABS: ANISOCYTOSIS 3+; GIANT PLATELET FEW; HYPOCHROMASIA 3+; MICROCYTOSIS 2+; PLATELET MORPHOLOGY COMMENT ABNORMAL (NORMAL); POIKILOCYTOSIS 2+; SPHEROCYTES PRESENT; TARGET CELLS PRESENT
[2022-04-10 05:32] LABS: OVALOCYTES PRESENT; SCHISTOCYTES PRESENT
[2022-04-10] MEDS ORDERED: NORMODYNE INJ 20 MG VIAL IV PRN (05:32)
[2022-04-10] MEDS ORDERED: CATAPRES TAB 0.1 MG PO ONE (05:32)
[2022-04-10] MEDS: DUONEB 0.5 MG/3 MG (3 mL) NEB SCH ×2 (05:52→11:51)
[2022-04-10] MEDS ORDERED: NS 1,000 ML IV 1,000 ML IV SCH (06:00)
[2022-04-10 07:33] LABS: ALANINE AMINOTRANSFERASE 54 Units/L (12-78); ALKALINE PHOSPHATASE 93 Units/L (46-116); ASPARTATE AMINO TRANSFERASE 63 Units/L (15-37); BLOOD UREA NITROGEN 15 mg/dL (7-18); CALCIUM 8.4 mg/dL (8.5-10.1); CARBON DIOXIDE 29.9 mmol/L (21-32); CHLORIDE 105 mmol/L (98-107); COR CA(FOR HYPOALB) 9.2 mg/dL (8.5-10.1); CREATININE 1.01 mg/dL (0.70-1.30); SODIUM 138 mmol/L (136-145); TOTAL PROTEIN 8.2 g/dL (6.4-8.2); eGFR NON BLACK RACES > 60 (>60)
[2022-04-10] MEDS ORDERED: ZESTRIL TAB 40 MG PO SCH (09:00)
[2022-04-10] MEDS ORDERED: LASIX PO SCH (09:00)
[2022-04-10] MEDS ORDERED: COREG TAB 3.125 MG PO SCH (09:00)
[2022-04-10] MEDS ORDERED: PATIENT'S HOME MEDICATION (Fluticasone-Umeclidin-Vilanter [Trelegy Ellipta] 200-62.5-25 mc IN SCH (09:00)
[2022-04-10] MEDS ORDERED: NS 100 ML IV 100 ML with VENOFER 400 MG IV NR ×2 (09:39)
[2022-04-10] MEDS ORDERED: NORVASC TAB 5 MG PO SCH (10:00)
[2022-04-10 13:08] VITALS: BP 173/89
== END 2022-04-10 14:55 | disposition home health service (06) ==
LOC: ER 04:07 → MED/SURG 04:07
PROVIDERS: ADMIT Family Medicine; ATTEND Obstetrics & Gynecology Obstetrics

== ENCOUNTER 2022-10-23 08:24 | Inpatient (IN) ==
--- NOTE | 2022-10-23 08:39 | DR.SOBA ---
HPI Time Seen Time Seen by Provider: 10/23/22 08:38 Complaints Chief Complaint Doctors Comments: 77 y/o male presents with shortness of breath. Has a h/o lung neoplasm, has seen Dr Lyon, to start treatment in the near future. Feeling worse past few days. Does use oxygen at home, "not eough". Denies cough, fever, chills. No bowel or bladder issues. + dyspnea, worse with exertion. Has not been eating well. Reviewed Nurses Notes Reviewed: Yes Source History Provided: Patient PMH PMH Past Medical History: Asthma, CHF, COPD and Hypertension Past Surgical History: No Surgical History: Other Family History Family Medical History: Diabetes Mellitus, Cancer, Coronary Artery Disease and Hypertension Social History Do you use any recreational Drugs:: No ROS Review of Systems Constitutional: Weakness Eyes: No Symptoms Reported ENTM: No Symptoms Reported Respiratoy: Short of Breath Cardiovascular: No Symptoms Reported Gastrointestinal/Abdominal: No Symptoms Reported Genitourinary: No Symptoms Reported Neurological: No Symptoms Reported Musculoskeletal: No Symptoms Reported Integumentary: No Symptoms Reported Hematologic/Lymphatic: No Symptoms Reported All Other Systems: Reviewed and Negative PE Vital Signs Vitals: Temperature 98.4 F Pulse Rate 122 Respiratory Rate 48 Blood Pressure [Right Arm] 167/93 Blood Pressure [Left Arm] 164/109 Blood Pressure 79/54 O2 Sat by Pulse Oximetry 90 General General Appearance: Alert and In No Apparent Distress Eyes Eye exam: PERRL and EOMI ENT ENT Exam: Mucous Membranes Moist Neck Neck Exam: Normal Inspection and Full ROM Respiratory Respiratory Exam: Normal Lung Sounds Bilat; negative Accessory Muscle Use or R espiratory Distress Cardiovascular Cardiovascular Exam: Tachycardia and Irregular Rhythm Abdominal Exam Abdominal Exam: Normal Bowel Sounds and Soft; negative Tenderness Extremities Extremities Exam: Normal Inspection; negative Edema Neurologic Neurological Exam: Alert, Oriented X3 and CN II-XII Intact; negative Motor Sensory Deficit Skin Skin Exam: Warm and Dry COURSE Treatment Treatment: 77 y/o male, awaiting to start treatment for lug neoplasm, presents with increasing dyspnea, depsite home O2. Is having atrial fibrillation, with RVR. W/u initiated, ABG obtained on 4 L. PT given IV fluids, IV cardizem bolus for his RVR. 1013 - brief help with initial cardizem bolus. 2nd bolus of cardiazem, with cardizem drip started. Heart rate in the 120s. CXR - whitening out on the R side (slightly worse than recent). Labs show acute renal injury - BUN 127, Cr 6.12. ABG with acidosis, not CO2 retaining. Was given 1 amp bicarb IV. WBC elevated. Will obtain blood cultures, lactic acid, started IV Rocephin. Discussed with Dr Farley, will admit here. WBC markedly elevated, will cover with IV Rocephin. ROR Labs Reviewed Laboratory Results Reviewed?: Yes Result Diagrams: 10/23/22 09:10 10/23/22 09:10 Laboratory: WBC 31.9 X10^3/uL (3.6-10.0) H* 10/23/22 09:10 RBC 4.32 X10^6/uL (4.7-6.0) L 10/23/22 09:10 Hgb 10.1 g/dL (13.5-18.0) L 10/23/22 09:10 Hct 32.7 % (42.0-54.0) L 10/23/22 09:10 MCV 75.7 fL (80.0-100.0) L 10/23/22 09:10 MCH 23.3 pg (27.0-34.0) L 10/23/22 09:10 MCHC 30.8 g/dL (33.0-35.0) L 10/23/22 09:10 RDW 18.3 % (11.6-16.5) H 10/23/22 09:10 Plt Count 432 X10^3/uL (150.0-450.0) 10/23/22 09:10 Plt Count Comment Adequate (ADEQUATE) 10/23/22 09:10 MPV 9.5 fL (7.4-11.0) 10/23/22 09:10 Neut % (Auto) 83.2 % (42.0-75.0) H 10/23/22 09:10 Lymph % (Auto) 7.4 % (21.0-51.0) L 10/23/22 09:10 [place] % (Auto) 8.0 % (0.0-13.0) 10/23/22 09:10 Eos % (Auto) 0.8 % (0.9-2.9) L 10/23/22 09:10 Baso % (Auto) 0.6 % (0.2-1.0) 10/23/22 09:10 Neut # (Auto) 26.6 x10^3/uL (2.2-4.8) H 10/23/22 09:10 Lymph # (Auto) 2.3 X10^3/uL (1.3-2.9) 10/23/22 09:10 [place] # (Auto) 2.5 x10^3/uL (0.3-0.8) H 10/23/22 09:10 Eos # (Auto) 0.3 x10^3/uL (0.0-0.2) H 10/23/22 09:10 Baso # (Auto) 0.2 X10^3/uL (0.0-0.1) H 10/23/22 09:10 Absolute Nucleated RBC 0.1 /100WBC 10/23/22 09:10 Total Counted 100 10/23/22 09:10 Neutrophils % (Manual) 76 % (39-76) 10/23/22 09:10 Band Neutrophils % 13 % (0-10) H 10/23/22 09:10 Lymphocytes % (Manual) 2 % (13-43) L 10/23/22 09:10 Monocytes % (Manual) 8 % (4-9) 10/23/22 09:10 Metamyelocytes % 1 10/23/22 09:10 Plt Morphology Comment Normal (NORMAL) 10/23/22 09:10 RBC Morphology Abnormal (NORMAL) 10/23/22 09:10 Hypochromasia 1+ A 10/23/22 09:10 Anisocytosis Slight A 10/23/22 09:10 Microcytosis Slight A 10/23/22 09:10 [place] Cells 2+ A 10/23/22 09:10 Sample Site Rra 10/23/22 08:45 ABG pH 7.250 (7.35-7.45) L 10/23/22 08:45 ABG pCO2 38.0 mmHg (35.0-45.0) 10/23/22 08:45 ABG pO2 47.0 mmHg (80.0-100.0) L* 10/23/22 08:45 ABG HCO3 16.7 mmol/L (22-26) L* 10/23/22 08:45 ABG O2 Saturation 75.0 % (90-100) L* 10/23/22 08:45 ABG Base Excess -9.8 mmol/L (-2.0-2.0) L 10/23/22 08:45 [place]quis Test Pos 10/23/22 08:45 A-a Gradient 162.0 mmHg 10/23/22 08:45 FiO2 36.0 10/23/22 08:45 Blood Gas Comments Pt olga well eb 10/23/22 08:45 Sodium 141 mmol/L (136-145) 10/23/22 09:10 Corrected Sodium 143 mmol/L (136-145) 10/23/22 09:10 Potassium 4.6 mmol/L (3.5-5.1) 10/23/22 09:10 Chloride 106 mmol/L (98-107) 10/23/22 09:10 Carbon Dioxide 21.2 mmol/L (21-32) 10/23/22 09:10 BUN 127 mg/dL (7-18) H 10/23/22 09:10 Creatinine 6.12 mg/dL (0.70-1.30) H 10/23/22 09:10 Est GFR (MDRD) Af Amer 12 (>60) L 10/23/22 09:10 Est GFR (MDRD) Non-Af 10 (>60) L 10/23/22 09:10 Glucose 167 mg/dL (65-99) H 10/23/22 09:10 Calcium 8.5 mg/dL (8.5-10.1) 10/23/22 09:10 Corrected Calcium 10.5 mg/dL (8.5-10.1) H 10/23/22 09:10 Total Bilirubin 0.60 mg/dL (0.2-1.0) 10/23/22 09:10 AST 36 Units/L (15-37) 10/23/22 09:10 ALT 20 Units/L (12-78) 10/23/22 09:10 Alkaline Phosphatase 42 Units/L (46-116) L 10/23/22 09:10 Troponin I High Sens 30.8 ng/L (4.0-60.0) 10/23/22 09:10 B-Natriuretic Peptide 147 pg/mL (0-79) H 10/23/22 09:10 Total Protein 7.3 g/dL (6.4-8.2) 10/23/22 09:10 Albumin 1.5 g/dL (3.4-5.0) L 10/23/22 09:10 Globulin 5.8 g/dL (2.5-4.5) H 10/23/22 09:10 Albumin/Globulin Ratio 0.3 Ratio (1.1-2.1) L 10/23/22 09:10 (see discussion under COURSE) XRAY XRAY Interpreted by: Self X-ray Results: + R side whitening out, slightly worse than last time. EKG Rate: 127 [place]: Normal Rhythm: Afib (with RVR) ST: Nonsp Opioid Opioid Risk Tool Age (Herson box if 16-45): No History of Preadolescent Sexual Abuse: No Total: 0 Total Score Risk Category: Low Risk Copyright: [facility] predicting aberrant behaviors Discharge Plan Diagnosis Discharge Problem: New onset a-fib, Atrial fibrillation with RVR, Acute kidney injury due to trauma, Lung cancer Discharge Plan Patient Disposition: ADMITTED INPATIENT Condition: Stable
[2022-10-23] MEDS ORDERED: NS 500 ML IV 500 ML IV ONE ×4 (08:45→09:21)
[2022-10-23] MEDS ORDERED: CARDIZEM INJ 50 MG VIAL IVP ONE ×2 (08:45→09:19)
--- NOTE | 2022-10-23 08:45 | EKG ---
Test Reason : SHORT OF BREATH Blood Pressure : */* mmHG Vent. Rate : 127 BPM Atrial Rate : * BPM P-R Int : * ms QRS Dur : 94 ms QT Int : 324 ms P-R-T Axes : * 45 60 degrees QTc Int : 470 ms Atrial fibrillation with rapid ventricular response Minimal voltage criteria for LVH, may be normal variant ( Sokolow-Zhang ) Abnormal ECG When compared with ECG of 08-OCT-2022 02:34, Atrial fibrillation has replaced Sinus rhythm Confirmed by Remigio Razo ([id number]) on 10/23/2022 1:15:59 PM Referred By: Confirmed By: Remigio Razo
[2022-10-23 08:49] LABS: ABG BASE EXCESS -9.8 mmol/L (-2.0-2.0)
[2022-10-23 08:50] LABS: ABG ALLEN TEST POS; ABG HCO3 16.7 mmol/L (22-26)
[2022-10-23] MEDS ORDERED: CARDIZEM INJ 125 MG VIAL ONE ×2 (08:50→09:22)
[2022-10-23] MEDS ORDERED: DILTIAZEM 125mg/125mL-0.7%NACL 125 MG/125 ML PLAST..BAG IV PRN (09:20)
[2022-10-23] MEDS ORDERED: NS 100 ML IV 100 ML ONE ×3 (09:21→10:26)
[2022-10-23] MEDS ORDERED: SODIUM BICARBONATE 8.4% INJ ADULT ONE (09:28)
[2022-10-23] MEDS: SODIUM BICARBONATE 8.4% INJ ADULT IVP ONE ×2 (09:32→09:33)
[2022-10-23 09:40] LABS: ALBUMIN 1.5 g/dL (3.4-5.0); CALCIUM 8.5 mg/dL (8.5-10.1); CARBON DIOXIDE 21.2 mmol/L (21-32); COR CA(FOR HYPOALB) 10.5 mg/dL (8.5-10.1); CREATININE 6.12 mg/dL (0.70-1.30); TOTAL PROTEIN 7.3 g/dL (6.4-8.2)
[2022-10-23] MEDS ORDERED: NS 1,000 ML IV 1,000 ML ONE (09:55)
[2022-10-23] MEDS ORDERED: NS 1,000 ML IV 1,000 ML IV SCH (10:00)
[2022-10-23 10:04] LABS: BASOPHILS # (AUTO) 0.2 X10^3/uL (0.0-0.1); BASOPHILS % (AUTO) 0.6 % (0.2-1.0); EOSINOPHILS # (AUTO) 0.3 x10^3/uL (0.0-0.2); EOSINOPHILS % (AUTO) 0.8 % (0.9-2.9); HEMATOCRIT 32.7 % (42.0-54.0); HEMOGLOBIN 10.1 g/dL (13.5-18.0); LYMPHOCYTES # (AUTO) 2.3 X10^3/uL (1.3-2.9); LYMPHOCYTES % (AUTO) 7.4 % (21.0-51.0); MEAN CORPUSCULAR HEMOGLOBIN 23.3 pg (27.0-34.0); MEAN CORPUSCULAR HGB CONC 30.8 g/dL (33.0-35.0); MEAN CORPUSCULAR VOLUME 75.7 fL (80.0-100.0); MEAN PLATELET VOLUME 9.5 fL (7.4-11.0); MONOCYTES # (AUTO) 2.5 x10^3/uL (0.3-0.8); NEUTROPHILS # (AUTO) 26.6 x10^3/uL (2.2-4.8); NEUTROPHILS % (AUTO) 83.2 % (42.0-75.0); RED BLOOD COUNT 4.32 X10^6/uL (4.7-6.0); RED CELL DISTRIBUTION WIDTH 18.3 % (11.6-16.5)
[2022-10-23 10:08] LABS: BAND NEUTROPHILS % 13 % (0-10); METAMYELOCYTES % 1; PLATELET MORPHOLOGY COMMENT NORMAL (NORMAL); WHITE BLOOD COUNT 31.9 X10^3/uL (3.6-10.0)
[2022-10-23 10:09] LABS: ANISOCYTOSIS SLIGHT; BURR CELLS 2+; HYPOCHROMASIA 1+; MICROCYTOSIS SLIGHT
[2022-10-23] MEDS ORDERED: ROCEPHIN VIAL 1 GRAM ONE (10:25)
[2022-10-23] MEDS: ROCEPHIN VIAL 1 GRAM 1 G in NS 100 ML IV 100 ML IV SCH (10:39)
[2022-10-23] MEDS ORDERED: DUONEB 0.5 MG/3 MG (3 mL) NEB ONE (11:55)
[2022-10-23] MEDS: DUONEB 0.5 MG/3 MG (3 mL) NEB SCH ×3 (13:05→21:00)
--- NOTE | 2022-10-23 15:06 | RAD ---
CHEST, 1 VIEWHISTORY: SHORTNESS OF BREATHStudy: Single view of the chest.Comparison:10/08/2022Findings:The cardiomediastinal silhouette is normal.Re-demonstration of complete whiteout of the right juanita thorax. Osseous structures demonstrate no acute abnormality.IMPRESSION:1. No change in complete whiteout of the right juanita thorax.Electronically signed by: CHERRIE PEACOCK (Oct 23, 2022 15:05:20)
[2022-10-23] MEDS: NS 1,000 ML IV 1,000 ML IV SCH ×3 (16:12→19:16)
[2022-10-23] MEDS: CARDIZEM INJ 125 MG VIAL 125 MG in NS 100 ML IV 100 ML IV PRN (19:55)
[2022-10-23] MEDS: HEPARIN SODIUM INJ 5000 UNITS SC SCH (20:55)
[2022-10-23] MEDS: PULMICORT NEB TX 0.5 MG NEB SCH (21:00)
[2022-10-24] MEDS: NS 1,000 ML IV 1,000 ML IV SCH ×3 (02:45→20:08)
[2022-10-24] MEDS: HEPARIN SODIUM INJ 5000 UNITS SC SCH ×3 (05:10→20:26)
[2022-10-24 05:11] LABS: BASOPHILS # (AUTO) 0.1 X10^3/uL (0.0-0.1); BASOPHILS % (AUTO) 0.5 % (0.2-1.0); HEMATOCRIT 29.8 % (42.0-54.0); HEMOGLOBIN 9.4 g/dL (13.5-18.0); LYMPHOCYTES # (AUTO) 0.4 X10^3/uL (1.3-2.9); LYMPHOCYTES % (AUTO) 1.5 % (21.0-51.0); MEAN CORPUSCULAR HEMOGLOBIN 23.3 pg (27.0-34.0); MEAN CORPUSCULAR HGB CONC 31.5 g/dL (33.0-35.0); MEAN PLATELET VOLUME 9.2 fL (7.4-11.0); MONOCYTES # (AUTO) 3.3 x10^3/uL (0.3-0.8); NEUTROPHILS # (AUTO) 19.9 x10^3/uL (2.2-4.8); RED BLOOD COUNT 4.03 X10^6/uL (4.7-6.0); RED CELL DISTRIBUTION WIDTH 17.8 % (11.6-16.5)
[2022-10-24 05:18] LABS: ALANINE AMINOTRANSFERASE 15 Units/L (12-78); ALBUMIN 1.3 g/dL (3.4-5.0); ALKALINE PHOSPHATASE 40 Units/L (46-116); ASPARTATE AMINO TRANSFERASE 26 Units/L (15-37); BLOOD UREA NITROGEN 119 mg/dL (7-18); CALCIUM 7.4 mg/dL (8.5-10.1); CARBON DIOXIDE 20.1 mmol/L (21-32); CHLORIDE 111 mmol/L (98-107); COR CA(FOR HYPOALB) 9.6 mg/dL (8.5-10.1); CREATININE 4.89 mg/dL (0.70-1.30); SODIUM 144 mmol/L (136-145); TOTAL PROTEIN 6.3 g/dL (6.4-8.2); eGFR NON BLACK RACES 12 (>60)
[2022-10-24 05:46] LABS: BAND NEUTROPHILS % 8 % (0-10); WHITE BLOOD COUNT 23.7 X10^3/uL (3.6-10.0)
[2022-10-24 05:47] LABS: ANISOCYTOSIS SLIGHT; BURR CELLS PRESENT; HYPOCHROMASIA 1+; MICROCYTOSIS SLIGHT; OVALOCYTES PRESENT; PLATELET MORPHOLOGY COMMENT NORMAL (NORMAL); SCHISTOCYTES PRESENT; TARGET CELLS PRESENT
[2022-10-24] MEDS: PULMICORT NEB TX 0.5 MG NEB SCH ×2 (07:30→21:05)
[2022-10-24] MEDS: DUONEB 0.5 MG/3 MG (3 mL) NEB SCH ×4 (07:30→21:05)
[2022-10-24] MEDS ORDERED: MORPHINE SULFATE INJ 2 MG INJ IVP ONE (07:45)
[2022-10-24] MEDS ORDERED: MORPHINE SULFATE INJ 2 MG INJ ONE (07:47)
[2022-10-24] MEDS: ROCEPHIN VIAL 1 GRAM 1 G in NS 100 ML IV 100 ML IV SCH (08:48)
[2022-10-24 09:23] LABS: ABG BASE EXCESS -11.8 mmol/L (-2.0-2.0)
[2022-10-24 09:24] LABS: ABG HCO3 15.6 mmol/L (22-26)
[2022-10-24 09:25] LABS: ABG ALLEN TEST POS
[2022-10-24 11:00] VITALS: BMI 19.9
[2022-10-24] MEDS ORDERED: NS 250 ML IV 250 ML IV ONE (12:28)
[2022-10-24] MEDS ORDERED: NS 100 ML IV 100 ML ONE (15:31)
[2022-10-24] MEDS: CARDIZEM INJ 125 MG VIAL 125 MG in NS 100 ML IV 100 ML IV PRN (15:32)
[2022-10-24 16:48] LABS: HEMATOCRIT 31.8 % (42.0-54.0)
[2022-10-24] MEDS: MORPHINE SULFATE INJ 2 MG INJ IVP PRN (20:07)
[2022-10-24] MEDS: COREG TAB 12.5 MG PO SCH (20:08)
[2022-10-25] MEDS: NS 1,000 ML IV 1,000 ML IV SCH (03:31)
[2022-10-25] MEDS: MORPHINE SULFATE INJ 2 MG INJ IVP PRN ×2 (03:47→14:51)
[2022-10-25 05:13] LABS: BASOPHILS # (AUTO) 0.1 X10^3/uL (0.0-0.1); BASOPHILS % (AUTO) 0.4 % (0.2-1.0); HEMATOCRIT 31.3 % (42.0-54.0); HEMOGLOBIN 9.7 g/dL (13.5-18.0); LYMPHOCYTES # (AUTO) 0.4 X10^3/uL (1.3-2.9); LYMPHOCYTES % (AUTO) 1.6 % (21.0-51.0); MEAN CORPUSCULAR HEMOGLOBIN 23.2 pg (27.0-34.0); MEAN CORPUSCULAR HGB CONC 31.1 g/dL (33.0-35.0); MEAN CORPUSCULAR VOLUME 74.7 fL (80.0-100.0); MONOCYTES # (AUTO) 2.1 x10^3/uL (0.3-0.8); MONOCYTES % (AUTO) 8.3 % (0.0-13.0); NEUTROPHILS # (AUTO) 22.5 x10^3/uL (2.2-4.8); NEUTROPHILS % (AUTO) 89.7 % (42.0-75.0); RED BLOOD COUNT 4.18 X10^6/uL (4.7-6.0); RED CELL DISTRIBUTION WIDTH 17.8 % (11.6-16.5); WHITE BLOOD COUNT 25.1 X10^3/uL (3.6-10.0)
[2022-10-25 05:19] LABS: ALBUMIN 1.1 g/dL (3.4-5.0); CALCIUM 7.4 mg/dL (8.5-10.1); COR CA(FOR HYPOALB) 9.7 mg/dL (8.5-10.1); CREATININE 4.33 mg/dL (0.70-1.30); TOTAL PROTEIN 6.1 g/dL (6.4-8.2)
[2022-10-25 05:38] LABS: ANISOCYTOSIS SLIGHT; BAND NEUTROPHILS % 7 % (0-10); HYPOCHROMASIA 2+; MICROCYTOSIS SLIGHT; PLATELET MORPHOLOGY COMMENT NORMAL (NORMAL); TARGET CELLS PRESENT
[2022-10-25 05:39] LABS: BURR CELLS PRESENT; OVALOCYTES PRESENT; SCHISTOCYTES PRESENT
[2022-10-25] MEDS: HEPARIN SODIUM INJ 5000 UNITS SC SCH ×3 (05:39→20:23)
[2022-10-25] MEDS: CARDIZEM INJ 125 MG VIAL 125 MG in NS 100 ML IV 100 ML IV PRN (06:27)
[2022-10-25] MEDS: DUONEB 0.5 MG/3 MG (3 mL) NEB SCH ×4 (08:25→20:45)
[2022-10-25] MEDS: PULMICORT NEB TX 0.5 MG NEB SCH ×2 (08:25→20:45)
[2022-10-25] MEDS: ROCEPHIN VIAL 1 GRAM 1 G in NS 100 ML IV 100 ML IV SCH (08:58)
[2022-10-25] MEDS ORDERED: LR 1,000 ML IV 1,000 ML IV ONE (10:07)
[2022-10-25] MEDS: COREG TAB 12.5 MG PO SCH ×2 (10:08→22:03)
[2022-10-25] MEDS: LR 1,000 ML IV 1,000 ML IV SCH ×3 (11:34→19:36)
[2022-10-25] MEDS: VIBRAMYCIN 100 MG in D5W 250 ML IV 250 ML IV SCH ×2 (11:35→20:23)
[2022-10-26] MEDS: LR 1,000 ML IV 1,000 ML IV SCH ×6 (00:55→19:30)
[2022-10-26] MEDS: MORPHINE SULFATE INJ 2 MG INJ IVP PRN ×5 (01:29→22:25)
[2022-10-26] MEDS: HEPARIN SODIUM INJ 5000 UNITS SC SCH ×3 (04:30→20:09)
[2022-10-26 05:21] LABS: BASOPHILS # (AUTO) 0.3 X10^3/uL (0.0-0.1); BASOPHILS % (AUTO) 1.2 % (0.2-1.0); EOSINOPHILS # (AUTO) 0.1 x10^3/uL (0.0-0.2); EOSINOPHILS % (AUTO) 0.4 % (0.9-2.9); HEMATOCRIT 33.4 % (42.0-54.0); HEMOGLOBIN 10.4 g/dL (13.5-18.0); LYMPHOCYTES # (AUTO) 3.9 X10^3/uL (1.3-2.9); LYMPHOCYTES % (AUTO) 15.1 % (21.0-51.0); MEAN CORPUSCULAR HEMOGLOBIN 23.4 pg (27.0-34.0); MEAN CORPUSCULAR HGB CONC 31.2 g/dL (33.0-35.0); MEAN PLATELET VOLUME 9.1 fL (7.4-11.0); MONOCYTES # (AUTO) 1.3 x10^3/uL (0.3-0.8); NEUTROPHILS # (AUTO) 20.2 x10^3/uL (2.2-4.8); NEUTROPHILS % (AUTO) 78.3 % (42.0-75.0); RED BLOOD COUNT 4.45 X10^6/uL (4.7-6.0); WHITE BLOOD COUNT 25.8 X10^3/uL (3.6-10.0)
[2022-10-26 05:32] LABS: ALANINE AMINOTRANSFERASE 9 Units/L (12-78); ALBUMIN 1.1 g/dL (3.4-5.0); ALKALINE PHOSPHATASE 48 Units/L (46-116); ASPARTATE AMINO TRANSFERASE 20 Units/L (15-37); BLOOD UREA NITROGEN 100 mg/dL (7-18); CALCIUM 7.7 mg/dL (8.5-10.1); CARBON DIOXIDE 18.6 mmol/L (21-32); CREATININE 3.67 mg/dL (0.70-1.30); SODIUM 146 mmol/L (136-145); eGFR NON BLACK RACES 17 (>60)
[2022-10-26 05:55] LABS: CHLORIDE 116 mmol/L (98-107)
[2022-10-26 05:59] LABS: BAND NEUTROPHILS % 7 % (0-10); HYPOCHROMASIA 1+; PLATELET MORPHOLOGY COMMENT NORMAL (NORMAL)
[2022-10-26 06:00] LABS: ANISOCYTOSIS SLIGHT; BURR CELLS PRESENT; MICROCYTOSIS SLIGHT; OVALOCYTES PRESENT; POIKILOCYTOSIS PRESENT; SCHISTOCYTES PRESENT; TARGET CELLS PRESENT
[2022-10-26] MEDS: COREG TAB 12.5 MG PO SCH ×2 (08:05→20:10)
[2022-10-26] MEDS: VIBRAMYCIN 100 MG in D5W 250 ML IV 250 ML IV SCH ×2 (08:19→20:09)
[2022-10-26] MEDS: ROCEPHIN VIAL 1 GRAM 1 G in NS 100 ML IV 100 ML IV SCH (08:19)
[2022-10-26] MEDS: PULMICORT NEB TX 0.5 MG NEB SCH ×2 (08:48→21:00)
[2022-10-26] MEDS: DUONEB 0.5 MG/3 MG (3 mL) NEB SCH ×4 (08:48→21:00)
[2022-10-26] MEDS ORDERED: NS 1,000 ML IV 1,000 ML IV ONE (09:29)
[2022-10-26] MEDS: ATIVAN INJ 2 MG VIAL IVP PRN ×3 (11:24→20:55)
[2022-10-27] MEDS: LR 1,000 ML IV 1,000 ML IV SCH ×4 (02:32→18:10)
[2022-10-27] MEDS: HEPARIN SODIUM INJ 5000 UNITS SC SCH ×3 (04:29→20:46)
[2022-10-27 05:21] LABS: BASOPHILS # (AUTO) 0.3 X10^3/uL (0.0-0.1); BASOPHILS % (AUTO) 1.1 % (0.2-1.0); EOSINOPHILS # (AUTO) 0.1 x10^3/uL (0.0-0.2); EOSINOPHILS % (AUTO) 0.5 % (0.9-2.9); HEMATOCRIT 34.1 % (42.0-54.0); HEMOGLOBIN 10.5 g/dL (13.5-18.0); LYMPHOCYTES # (AUTO) 2.9 X10^3/uL (1.3-2.9); LYMPHOCYTES % (AUTO) 12.1 % (21.0-51.0); MEAN CORPUSCULAR HEMOGLOBIN 23.5 pg (27.0-34.0); MEAN CORPUSCULAR HGB CONC 30.7 g/dL (33.0-35.0); MEAN CORPUSCULAR VOLUME 76.7 fL (80.0-100.0); MEAN PLATELET VOLUME 8.7 fL (7.4-11.0); MONOCYTES # (AUTO) 1.5 x10^3/uL (0.3-0.8); MONOCYTES % (AUTO) 6.2 % (0.0-13.0); NEUTROPHILS # (AUTO) 19.1 x10^3/uL (2.2-4.8); NEUTROPHILS % (AUTO) 80.1 % (42.0-75.0); RED BLOOD COUNT 4.45 X10^6/uL (4.7-6.0); RED CELL DISTRIBUTION WIDTH 18.4 % (11.6-16.5); WHITE BLOOD COUNT 23.9 X10^3/uL (3.6-10.0)
[2022-10-27 05:40] LABS: ALANINE AMINOTRANSFERASE 9 Units/L (12-78); ALKALINE PHOSPHATASE 52 Units/L (46-116); ASPARTATE AMINO TRANSFERASE 22 Units/L (15-37); BLOOD UREA NITROGEN 93 mg/dL (7-18); CALCIUM 7.6 mg/dL (8.5-10.1); CARBON DIOXIDE 21.3 mmol/L (21-32); CREATININE 3.46 mg/dL (0.70-1.30); SODIUM 146 mmol/L (136-145); eGFR NON BLACK RACES 18 (>60)
[2022-10-27 05:55] LABS: ANISOCYTOSIS SLIGHT; BAND NEUTROPHILS % 6 % (0-10); BURR CELLS PRESENT; HYPOCHROMASIA 1+; MICROCYTOSIS SLIGHT; OVALOCYTES PRESENT; PLATELET MORPHOLOGY COMMENT NORMAL (NORMAL); TARGET CELLS PRESENT
[2022-10-27 05:56] LABS: SCHISTOCYTES PRESENT
[2022-10-27 05:57] LABS: CHLORIDE 116 mmol/L (98-107)
[2022-10-27] MEDS: ROCEPHIN VIAL 1 GRAM 1 G in NS 100 ML IV 100 ML IV SCH (08:19)
[2022-10-27] MEDS: COREG TAB 12.5 MG PO SCH ×2 (08:22→20:47)
[2022-10-27] MEDS: PULMICORT NEB TX 0.5 MG NEB SCH (08:27)
[2022-10-27] MEDS: DUONEB 0.5 MG/3 MG (3 mL) NEB SCH ×3 (08:27→16:55)
[2022-10-27] MEDS: VIBRAMYCIN 100 MG in D5W 250 ML IV 250 ML IV SCH ×2 (09:21→20:46)
[2022-10-27] MEDS: ATIVAN INJ 2 MG VIAL IVP PRN ×2 (09:25→23:30)
[2022-10-27] MEDS: MORPHINE SULFATE INJ 2 MG INJ IVP PRN ×2 (11:15→19:13)
[2022-10-28] MEDS: LR 1,000 ML IV 1,000 ML IV SCH ×3 (02:03→20:04)
[2022-10-28] MEDS: MORPHINE SULFATE INJ 2 MG INJ IVP PRN ×3 (03:33→11:55)
[2022-10-28 05:08] LABS: BASOPHILS # (AUTO) 0.2 X10^3/uL (0.0-0.1); BASOPHILS % (AUTO) 0.9 % (0.2-1.0); EOSINOPHILS # (AUTO) 0.2 x10^3/uL (0.0-0.2); EOSINOPHILS % (AUTO) 0.8 % (0.9-2.9); HEMATOCRIT 33.5 % (42.0-54.0); HEMOGLOBIN 10.4 g/dL (13.5-18.0); LYMPHOCYTES # (AUTO) 1.2 X10^3/uL (1.3-2.9); LYMPHOCYTES % (AUTO) 5.6 % (21.0-51.0); MEAN CORPUSCULAR HEMOGLOBIN 23.5 pg (27.0-34.0); MEAN CORPUSCULAR HGB CONC 31.1 g/dL (33.0-35.0); MEAN CORPUSCULAR VOLUME 75.7 fL (80.0-100.0); MEAN PLATELET VOLUME 9.1 fL (7.4-11.0); MONOCYTES # (AUTO) 1.6 x10^3/uL (0.3-0.8); NEUTROPHILS # (AUTO) 19.1 x10^3/uL (2.2-4.8); NEUTROPHILS % (AUTO) 85.7 % (42.0-75.0); RED BLOOD COUNT 4.43 X10^6/uL (4.7-6.0); RED CELL DISTRIBUTION WIDTH 18.8 % (11.6-16.5); WHITE BLOOD COUNT 22.3 X10^3/uL (3.6-10.0)
[2022-10-28 05:12] LABS: ALANINE AMINOTRANSFERASE 11 Units/L (12-78); ALKALINE PHOSPHATASE 50 Units/L (46-116); ASPARTATE AMINO TRANSFERASE 26 Units/L (15-37); BLOOD UREA NITROGEN 88 mg/dL (7-18); CARBON DIOXIDE 21.5 mmol/L (21-32); COR CA(FOR HYPOALB) 10.4 mg/dL (8.5-10.1); CREATININE 3.24 mg/dL (0.70-1.30); SODIUM 145 mmol/L (136-145); TOTAL PROTEIN 6.2 g/dL (6.4-8.2); eGFR NON BLACK RACES 20 (>60)
[2022-10-28] MEDS: HEPARIN SODIUM INJ 5000 UNITS SC SCH ×3 (05:12→20:22)
[2022-10-28 05:37] LABS: CHLORIDE 116 mmol/L (98-107)
[2022-10-28 05:41] LABS: ANISOCYTOSIS SLIGHT; BAND NEUTROPHILS % 3 % (0-10); HYPOCHROMASIA 1+; MICROCYTOSIS SLIGHT; OVALOCYTES PRESENT; PLATELET MORPHOLOGY COMMENT NORMAL (NORMAL); TARGET CELLS PRESENT
[2022-10-28] MEDS: COREG TAB 12.5 MG PO SCH ×2 (08:20→20:18)
[2022-10-28] MEDS: ROCEPHIN VIAL 1 GRAM 1 G in NS 100 ML IV 100 ML IV SCH (08:20)
[2022-10-28] MEDS: VIBRAMYCIN 100 MG in D5W 250 ML IV 250 ML IV SCH ×2 (09:02→20:22)
[2022-10-28] MEDS: DUONEB 0.5 MG/3 MG (3 mL) NEB SCH ×4 (09:15→20:35)
[2022-10-28] MEDS: PULMICORT NEB TX 0.5 MG NEB SCH ×2 (09:15→20:35)
[2022-10-28] MEDS: ATIVAN INJ 2 MG VIAL IVP PRN (11:08)
[2022-10-28] MEDS ORDERED: MORPHINE SULFATE INJ 4 MG IVP PRN (13:00)
[2022-10-28] MEDS ORDERED: ATIVAN INJ 2 MG VIAL IVP PRN (14:00)
--- NOTE | 2022-10-28 14:33 | RAD ---
HISTORYSOB Relevant Clinical InformationSTUDYCHEST, 1 [id number]/15/2022.FINDINGSThe trachea is midline. The right lung is almost entirely collapsed with a large right effusion. There is opacity in the left base which could be atelectasis or infection. There is no definite left effusion and there is no left pneumothorax. The bony thorax is unremarkable.IMPRESSION1. Massive right effusion and right lung collapse. 2. Nonspecific left base opacity which could be atelectasis or infiltrate..Electronically signed by: Mauricio Waite (Oct 28, 2022 14:31:26)
--- NOTE | 2022-10-28 17:57 | PCM.PROG ---
Progress Note - Progress Note for Day of Date of Exam: 10/28/22 - Subjective Subjective: The patient is a 77-year-old black male who has a history of lung cancer currently being treated for acute hypoxia, as well as acute on chronic lung disease with hypoxia. The patient is currently on doxycycline and Rocephin. He does have a history of atrial fibrillation as well. He is on a beta-homer, Carvedilol 12.5 mg two times a day. The patient is also on heparin. He has a limited do not resuscitate. Family wants to treat arrhythmias and use antibiotic therapy. They are aware of patients terminal illness. - Past Medical Family Social History Past Med/Fam/Surg Hx: No changes since H&P Allergies: Allergies Penicillins Allergy (Verified 04/06/18 21:11) shellfish derived Allergy (Verified 04/06/18 21:11) - Review of Systems ROS: No change since H&P - Vital Signs and I&O's Vital Signs: Temperature 97.9 F Pulse Rate 81 Respiratory Rate 23 Blood Pressure [Right Arm] 167/93 Blood Pressure [Left Arm] 164/109 Blood Pressure 95/53 O2 Sat by Pulse Oximetry 100 Intake and Output: Intake & Output 10/26/22 10/27/22 10/28/22 10/29/22 11:59 11:59 11:59 11:59 Intake Total 5057 / 5057 5420 / 5420 3648 / 3648 1114 / 1114 Balance 5057 / 5057 5420 / 5420 3648 / 3648 1114 / 1114 - Physical Exam Oriented: Person Eyes: Normal Ear: Normal Nose: Normal Throat: Normal Respiratory: Diminished, Rhonchi Cardiovascular: Normal : Normal Auscultation: Bowel Sounds: Normal Tenderness: Normal Skin: Decreased Turgur Musculoskeletal: Back:Lumbar Psychiatric: Anxiety Affect: Anxious Speech Pattern: Appropriate - Laboratory and Diagnostics Result Diagrams: 10/28/22 04:12 10/28/22 04:12 Labs: 10/23/22 10:30 Blood Blood Culture - Final 10/23/22 10:21 Blood Blood Culture - Final Laboratory WBC 22.3 X10^3/uL (3.6-10.0) H 10/28/22 04:12 RBC 4.43 X10^6/uL (4.7-6.0) L 10/28/22 04:12 Hgb 10.4 g/dL (13.5-18.0) L 10/28/22 04:12 Hct 33.5 % (42.0-54.0) L 10/28/22 04:12 MCV 75.7 fL (80.0-100.0) L 10/28/22 04:12 MCH 23.5 pg (27.0-34.0) L 10/28/22 04:12 MCHC 31.1 g/dL (33.0-35.0) L 10/28/22 04:12 RDW 18.8 % (11.6-16.5) H 10/28/22 04:12 Plt Count 325 X10^3/uL (150.0-450.0) 10/28/22 04:12 Plt Count Comment Adequate (ADEQUATE) 10/28/22 04:12 MPV 9.1 fL (7.4-11.0) 10/28/22 04:12 Neut % (Auto) 85.7 % (42.0-75.0) H 10/28/22 04:12 Lymph % (Auto) 5.6 % (21.0-51.0) L 10/28/22 04:12 [place] % (Auto) 7.0 % (0.0-13.0) 10/28/22 04:12 Eos % (Auto) 0.8 % (0.9-2.9) L 10/28/22 04:12 Baso % (Auto) 0.9 % (0.2-1.0) 10/28/22 04:12 Neut # (Auto) 19.1 x10^3/uL (2.2-4.8) H 10/28/22 04:12 Lymph # (Auto) 1.2 X10^3/uL (1.3-2.9) L 10/28/22 04:12 [place] # (Auto) 1.6 x10^3/uL (0.3-0.8) H 10/28/22 04:12 Eos # (Auto) 0.2 x10^3/uL (0.0-0.2) 10/28/22 04:12 Baso # (Auto) 0.2 X10^3/uL (0.0-0.1) H 10/28/22 04:12 Absolute Nucleated RBC 2.4 /100WBC 10/28/22 04:12 Total Counted 100 10/28/22 04:12 Neutrophils % (Manual) 81 % (39-76) H 10/28/22 04:12 Band Neutrophils % 3 % (0-10) 10/28/22 04:12 Lymphocytes % (Manual) 8 % (13-43) L 10/28/22 04:12 Monocytes % (Manual) 6 % (4-9) 10/28/22 04:12 Eosinophils % (Manual) 2 % (0-6) 10/28/22 04:12 Metamyelocytes % 1 10/23/22 09:10 Nucleated RBCs 8 10/28/22 04:12 Atypical Lymphocytes Rare 10/28/22 04:12 Plt Morphology Comment Normal (NORMAL) 10/28/22 04:12 RBC Morphology Abnormal (NORMAL) 10/28/22 04:12 Hypochromasia 1+ A 10/28/22 04:12 Poikilocytosis Present 10/26/22 04:21 Anisocytosis Slight A 10/28/22 04:12 Microcytosis Slight A 10/28/22 04:12 Target Cells Present 10/28/22 04:12 Ovalocytes Present 10/28/22 04:12 [place] Cells Present 10/27/22 04:06 Schistocytes Present 10/27/22 04:06 Sample Site Rr 10/24/22 08:25 ABG pH 7.200 (7.35-7.45) L 10/24/22 08:25 ABG pCO2 40.0 mmHg (35.0-45.0) 10/24/22 08:25 ABG pO2 81.0 mmHg (80.0-100.0) 10/24/22 08:25 ABG HCO3 15.6 mmol/L (22-26) L* 10/24/22 08:25 ABG O2 Saturation 93.0 % (90-100) 10/24/22 08:25 ABG Base Excess -11.8 mmol/L (-2.0-2.0) L 10/24/22 08:25 Marquis Test Pos 10/24/22 08:25 A-a Gradient 582.0 mmHg 10/24/22 08:25 FiO2 100 10/24/22 08:25 Blood Gas Comments [facility] 10/24/22 08:25 Sodium 145 mmol/L (136-145) 10/28/22 04:12 Corrected Sodium TNP 10/28/22 04:12 Potassium 4.7 mmol/L (3.5-5.1) 10/28/22 04:12 Chloride 116 mmol/L (98-107) H* 10/28/22 04:12 Carbon Dioxide 21.5 mmol/L (21-32) 10/28/22 04:12 BUN 88 mg/dL (7-18) H 10/28/22 04:12 Creatinine 3.24 mg/dL (0.70-1.30) H 10/28/22 04:12 Est GFR (MDRD) Af Amer 24 (>60) L 10/28/22 04:12 Est GFR (MDRD) Non-Af 20 (>60) L 10/28/22 04:12 Glucose 87 mg/dL (65-99) 10/28/22 04:12 Lactic Acid 1.5 mmol/L (0.4-2.0) 10/23/22 10:30 Calcium 8.0 mg/dL (8.5-10.1) L 10/28/22 04:12 Corrected Calcium 10.4 mg/dL (8.5-10.1) H 10/28/22 04:12 Total Bilirubin 0.40 mg/dL (0.2-1.0) 10/28/22 04:12 AST 26 Units/L (15-37) 10/28/22 04:12 ALT 11 Units/L (12-78) L 10/28/22 04:12 Alkaline Phosphatase 50 Units/L (46-116) 10/28/22 04:12 Troponin I High Sens 30.8 ng/L (4.0-60.0) 10/23/22 09:10 B-Natriuretic Peptide 147 pg/mL (0-79) H 10/23/22 09:10 Total Protein 6.2 g/dL (6.4-8.2) L 10/28/22 04:12 Albumin 1.0 g/dL (3.4-5.0) L 10/28/22 04:12 Globulin 5.2 g/dL (2.5-4.5) H 10/28/22 04:12 Albumin/Globulin Ratio 0.2 Ratio (1.1-2.1) L 10/28/22 04:12 Blood Type B POSITIVE 10/24/22 09:49 Antibody Screen Negative 10/24/22 09:49 Crossmatch See Detail 10/24/22 09:49 - Plan (1) Lung cancer Status: Acute Plan: RESPIRATORY THERAPY, SUPPLEMENTAL O2. IV ATBX, CONTINUOUS CARDIAC MONITORING. BP CONTROL AND MONITORING. FAMILY AT BEDSIDE, DISCUSSED HOSPICE CONSULT. (2) Renal failure Status: Acute (3) Heart failure, chronic, with acute decompensation Status: Acute (4) Hypertensive heart disease with CHF Status: Acute (5) Hypoxia Status: Acute (6) Atrial fibrillation with RVR Status: Acute
[2022-10-29] MEDS: LR 1,000 ML IV 1,000 ML IV SCH ×2 (03:47→10:59)
[2022-10-29] MEDS: HEPARIN SODIUM INJ 5000 UNITS SC SCH (04:38)
[2022-10-29] MEDS: COREG TAB 12.5 MG PO SCH (08:10)
[2022-10-29] MEDS: ROCEPHIN VIAL 1 GRAM 1 G in NS 100 ML IV 100 ML IV SCH (08:12)
[2022-10-29] MEDS: VIBRAMYCIN 100 MG in D5W 250 ML IV 250 ML IV SCH (08:56)
[2022-10-29] MEDS: DUONEB 0.5 MG/3 MG (3 mL) NEB SCH (09:00)
[2022-10-29] MEDS: PULMICORT NEB TX 0.5 MG NEB SCH (09:00)
[2022-10-29 09:02] VITALS: BP 79/42
[2022-10-29] MEDS ORDERED: ATROPINE SULFATE ABBOJECT IVP ONE ×2 (09:23→10:56)
== END 2022-10-29 11:20 | disposition expired | DRG 309 ==
LOC: ER 08:24 → ICU 10:10
PROVIDERS: ADMIT Obstetrics & Gynecology Obstetrics; ATTEND Obstetrics & Gynecology Obstetrics
DX: J93.83 Other pneumothorax; Z66 Do not resuscitate; N17.8 Other acute kidney failure; Z99.81 Dependence on supplemental oxygen; E86.0 Dehydration; C34.90 Malignant neoplasm of unspecified part of unspecified bronchus or lung; R09.02 Hypoxemia; I48.91 Unspecified atrial fibrillation; R06.02 Shortness of breath; J44.9 Chronic obstructive pulmonary disease, unspecified; I10 Essential (primary) hypertension; Z51.5 Encounter for palliative care; R94.31 Abnormal electrocardiogram [ECG] [EKG]